=== PATIENT | male | born 1955 | race Caucasian/White ===

== ENCOUNTER 2020-12-07 13:05 | Outpatient (CLI) | payer OTHER, SELFPAY ==
--- NOTE | 2020-12-07 13:25 | CT_ITS ---
WS: [id number] CT CHEST TECHNIQUE: Contrast enhanced CT of the chest with coronal and sagittal reformatted images. CLINICAL INFORMATION: FOLLOW UP LUNG NODULE COMPARISON: 05 15,018 DLP: 842.[address] scans at [facility] use at least one of these dose optimization techniques: automat ed exposure control; mA and/or kV adjustment per patient size (includes targeted exams where dose is matched to clinical indication); or iterative reconstruction. FINDINGS: Previously described 4.3 mm nodule left upper lobe has essentially resolved. Tiny vague 2 mm residual opacity in this location. No other suspicious pulmonary parenchymal abnormalities. Mild chronic emph ysematous changes. No focal pneumonia or pleural fluid. No mediastinal or hilar lymphadenopathy. Norm al caliber thoracic aorta. Mild aortic calcification. Mild coronary calcification. No axillary lympha denopathy. Adrenal glands are normal. Small esophageal hiatal hernia. Mild thoracic curve. Mild thora cic kyphosis. Degenerative narrowing throughout the thoracic spine with endplate Schmorl's nodes. CT/CT chest w con* [id number] IMPRESSION: 1. Previously described 4.3 mm nodule left upper lobe has essentially resolved with only a tiny residual 2 mm opacity. No other suspicious pulmonary parenchy mal abnormalities. 2. Mild chronic emphysematous changes. 3. No acute pulmonary infiltrates. 4. No mediastinal or hilar lymphadenopathy. No axillary lymphadenopathy. 5. Small esophageal hiatal hernia.
[2020-12-07] MEDS: iohexol 300 mg/mL 100 mL Btl IV (13:55)
== END 2020-12-07 13:06 | disposition home or self-care (01) ==
PROVIDERS: PCP Family Medicine; Visit Provider Family Medicine
DX: R91.1 Solitary pulmonary nodule (principal); K44.9 Diaphragmatic hernia without obstruction or gangrene
CPT/HCPCS: 71260; Q9967

== ENCOUNTER 2021-06-24 09:27 | Outpatient (CLI) | payer OTHER, SELFPAY ==
--- NOTE | 2021-06-24 09:35 | USCV_ITS ---
Carlos Martin Age: 66 Gender: M : 1955 Exam Date: 06/24/2021 09:40 Ordering Phys: Almaz Bynum MD Technologist: Elen Judge [place] [facility] [place] SCREENING HISTORY: Diameter (cm) AP x Transverse x Length Velocity (cm/s) Waveform Prox Aorta: 2.24 x 2.33 x 75.70 Mid Aorta: 1.88 x 2.34 x 75.70 Distal Aorta: 3.34 x 3.51 x 44.40 Right Iliac Prox: 0.98 x 1.03 x 129.00 Left Iliac Prox: 1.12 x 1.29 x 87.60 Stent Prox Landing x x Aneurysmal Sac Max x x Lt Lat Sac Dim Rt Lat Sac Dim Stent Dist Landing x x Right Iliac Stent x x Left Iliac Stent x x Right Renal Art Left Renal Art FINDINGS: Comparison: none available. Ectatic abdominal aorta with evidence of atherosclerotic plaque noted. A fusiform abdominal aortic aneurysm is noted with a maximal diameter of 3.5 cm. There is evidence of atherosclerotic plaque no significan stenosis in the right common iliac artery. There is evidence of atherosclerotic plaque no significan stenosis in the left common iliac artery. CONCLUSIONS AAA, diameter of 3.5cm. Dr. Queenie Christiansen DO (Electronically Signed) Final Date: 24 June 2021 10:19 S
== END 2021-06-24 09:28 | disposition home or self-care (01) ==
PROVIDERS: PCP Family Medicine; Visit Provider Family Medicine
DX: Z13.6 Encounter for screening for cardiovascular disorders (principal); I71.4 Abdominal aortic aneurysm, without rupture
CPT/HCPCS: 76706

== ENCOUNTER → 2021-11-09 09:20 | Outpatient (BNVA) | payer OTHER, SELFPAY | PROVIDERS: PCP Family Medicine; Referring Provider Family Medicine; Visit Provider Specialist | DX: G56.01 Carpal tunnel syndrome, right upper limb (principal) | CPT/HCPCS: 95908 ==

== ENCOUNTER 2021-11-26 06:00 | Outpatient (RCR) | payer OTHER, SELFPAY | END 2021-12-25 23:59 | disposition home or self-care (01) | LOC: SOT 06:00 | PROVIDERS: Absent Provider Specialist; Family Provider Specialist; PCP Specialist; Referring Provider Specialist; Visit Provider Specialist | DX: M79.641 Pain in right hand (principal) | CPT/HCPCS: 97018; 97165 ==

== ENCOUNTER → 2021-12-15 14:52 | Outpatient (BNVA) | payer OTHER, SELFPAY | PROVIDERS: PCP Family Medicine; Referring Provider Family Medicine; Visit Provider Specialist | DX: M25.531 Pain in right wrist (principal); F17.210 Nicotine dependence, cigarettes, uncomplicated | CPT/HCPCS: 73110; 99203; 99204 ==

== ENCOUNTER 2021-12-26 06:00 | Outpatient (RCR) | payer OTHER, SELFPAY | END 2022-01-25 23:59 | disposition home or self-care (01) | LOC: SOT 06:00 | PROVIDERS: Absent Provider Specialist; Family Provider Specialist; PCP Specialist; Referring Provider Specialist; Visit Provider Specialist | DX: M25.531 Pain in right wrist (principal) | CPT/HCPCS: 97022; 97110; 97140 ==

== ENCOUNTER 2022-01-26 06:00 | Outpatient (RCR) | payer OTHER, SELFPAY | END 2022-02-24 23:59 | disposition home or self-care (01) | LOC: SOT 06:00 | PROVIDERS: Absent Provider Specialist; Family Provider Specialist; PCP Specialist; Referring Provider Specialist; Visit Provider Specialist | DX: M79.641 Pain in right hand (principal); M25.531 Pain in right wrist | CPT/HCPCS: 97110; 97140 ==

== ENCOUNTER 2022-03-04 12:56 | Outpatient (CLI) | payer OTHER, SELFPAY ==
--- NOTE | 2022-03-04 13:05 | US_ITS ---
WS: [id number] TESTICULAR ULTRASOUND HISTORY: ENLARGED TESTICLE COMPARISON: None available. TECHNIQUE: Real-time and color Doppler imaging or utilized to perform a testicular ultrasound. Right testicle: 5.0 cm x 3.5 cm x 2.5 cm. Normal size and echogenicity. No mass or torsion. Normal color Doppler is present throughout. Systolic and diastolic velocities are both present. Very small simple hydrocele. Right epididymis: Normal epididymis with no increased vascularity. Left testicle: 4.3 cm x 2.9 cm x 2.7 cm. Normal size and echogenicity. No mass or torsion. Normal color Doppler is present throughout. Systolic and diastolic velocities are both present. Small hydrocele. Left epididymis: There is a large cyst with low-level echoes adjacent to the epididymis. Favor this i s probably a large spermatocele. This follows the epididymis and has multiple loculations. Entire col lection measures approximately 5.1 x 3.0 x 5.9 cm. US/US scrotum [id number] IMPRESSION: 1. No testicular mass or torsion. 2. Multiloculated cystic mass with low-level echoes closely associated with th e LEFT epididymis. Favor this is probably a large LEFT spermatocele.
== END 2022-03-04 12:57 | disposition home or self-care (01) ==
LOC: RAD 12:57
PROVIDERS: PCP Family Medicine; Visit Provider Family Medicine
DX: Z01.89 Encounter for other specified special examinations (principal); N44.8 Other noninflammatory disorders of the testis
CPT/HCPCS: 76870

== ENCOUNTER 2022-11-18 15:29 | Outpatient (RCR) | payer OTHER, SELFPAY | END 2022-11-25 23:59 | disposition home or self-care (01) | LOC: SPT 15:29 | PROVIDERS: Visit Provider Family Medicine | DX: M54.2 Cervicalgia (principal) | CPT/HCPCS: 97110; 97161 ==

== ENCOUNTER 2022-11-26 06:00 | Outpatient (RCR) | payer OTHER, SELFPAY | END 2022-12-15 23:59 | disposition home or self-care (01) | LOC: SPT 06:00 | PROVIDERS: Visit Provider Family Medicine | DX: M54.2 Cervicalgia (principal) | CPT/HCPCS: 97110 ==

== ENCOUNTER → 2023-04-13 13:17 | Outpatient (BNVA) | payer OTHER, SELFPAY | PROVIDERS: Visit Provider Dermatology | DX: L57.0 Actinic keratosis (principal); L57.8 Other skin changes due to chronic exposure to nonionizing radiation; L82.1 Other seborrheic keratosis; L81.4 Other melanin hyperpigmentation; L82.0 Inflamed seborrheic keratosis; F17.210 Nicotine dependence, cigarettes, uncomplicated; Z85.828 Personal history of other malignant neoplasm of skin | CPT/HCPCS: 17000; 17110; 99213 ==

== ENCOUNTER → 2023-05-15 10:23 | Outpatient (BNVA) | payer OTHER, SELFPAY | PROVIDERS: PCP Family Medicine; Visit Provider Surgery | DX: Z12.11 Encounter for screening for malignant neoplasm of colon (principal); Z12.12 Encounter for screening for malignant neoplasm of rectum | CPT/HCPCS: 99024; 99203 ==

== ENCOUNTER 2023-05-19 09:57 | Outpatient (CLI) | payer OTHER, SELFPAY ==
--- NOTE | 2023-05-19 10:07 | CT_ITS ---
WS: [id number] CT CHEST TECHNIQUE: Noncontrast CT of the chest with coronal and sagittal reformatted images. CLINICAL INFORMATION: LEFT UPPER LOBE NODULE COMPARISON: None. DLP: 329.[address] scans at [facility] use at least one of these dose optimization techniques: automated e xposure control; mA and/or kV adjustment per patient size (includes targeted exams where dose is matc hed to clinical indication); or iterative reconstruction. FINDINGS: Small subpleural nodule LEFT upper lobe measuring 4 mm. This is similar to 2019. This is better visua lized today than in 202. Fibrosis in the lung apices. Tiny noncalcified nodule in the lingula measur ing 4 mm. Mild chronic emphysematous changes. No acute pulmonary infiltrates. No focal pneumonia or p leural fluid. Normal caliber thoracic aorta. Aortic calcification. Coronary calcification. No mediastinal or hilar lymphadenopathy. No axillary lymphadenopathy. Adrenal glands are normal. Thoracic kyphosis. Hypertrophic changes thoracic spine. Mild thoracic curv e. IMPRESSION: 1. Stable 4 mm LEFT upper lobe nodule. 2. New tiny 4 mm lingula nodule. Recommend 12-month follow-up. 3. No mediastinal or hilar lymphadenopathy. 4. Mild chronic emphysematous changes.
--- NOTE | 2023-05-19 10:07 | USCV_ITS ---
Carlos Martin Age: 68 Gender: M : 1955 Exam Date: 05/19/2023 10:22 Ordering Phys: Almaz Bynum MD Technologist: HALEIGH Exam Location: [facility] [place] Indication: AAA HISTORY: Diameter (cm) AP x Transverse x Length Velocity (cm/s) Waveform Prox Aorta: 1.87 x 2.42 x 72.50 Triphasic Mid Aorta: 1.81 x 2.17 x 63.90 Triphasic Distal Aorta: 3.02 x 4.02 x 4.43 27.90 Triphasic Right Iliac Prox: 1.06 x 1.43 x 78.80 Triphasic Left Iliac Prox: 1.05 x 1.61 x 95.90 Triphasic Stent Prox Landing x x Aneurysmal Sac Max x x Lt Lat Sac Dim Rt Lat Sac Dim Stent Dist Landing x x Right Iliac Stent x x Left Iliac Stent x x Right Renal Art Left Renal Art FINDINGS: CONCLUSIONS Infrarenal fusiform AAA measuring 3.0 x 4.0 x 4.4cm AP x Trans x CC. Moderate atheromatous disease with peripheral mural thrombus. AAA appears relatively stable since 2020. Mural thrombus has increased William Cannon MD (Electronically Signed) Final Date: 19 May 2023 16:47 S
== END 2023-05-19 09:58 | disposition home or self-care (01) ==
LOC: RAD 09:58
PROVIDERS: PCP Family Medicine; Visit Provider Family Medicine
DX: R91.8 Other nonspecific abnormal finding of lung field (principal); I71.43 Infrarenal abdominal aortic aneurysm, without rupture; I70.0 Atherosclerosis of aorta; I74.09 Other arterial embolism and thrombosis of abdominal aorta
CPT/HCPCS: 71250; 93978

== ENCOUNTER 2023-12-21 07:31 | Day surgery (SDC) | payer OTHER, SELFPAY ==
--- NOTE | 2023-12-21 07:42 | W.PM.OPSFHP ---
Same Day Surgery H&P Indication for Procedure/HPI DATE OF PROCEDURE: December 21, 2023 CHIEF COMPLAINT/INDICATIONFOR SURGICAL PROCEDURE: need for colon cancer screening PREOP DIAGNOSIS: need for colon cancer screening PLANNED PROCEDURE: Operation Date: 12/21/23 09:00 Proposed Procedures p Colonoscopy 82818,Z12.11(Not Applicable) - Zev Pal MD Medications/Allergies* Home Medications Medication Instructions Recorded Confirmed Type gabapentin 100 mg capsule 1,000 mg PO TID 11/09/21 12/19/23 History ibuprofen 600 mg tablet 600 mg PO BID 11/09/21 12/19/23 History valacyclovir 1 gram tablet 1,000 mg PO DAILY PRN Outbreak 12/15/21 12/19/23 History tramadol 50 mg tablet 50 mg PO Q6H PRN Pain 12/19/23 12/19/23 History Allergies/Adverse Reactions Allergy/AdvReac Type Severity Reaction Status Date / Time No Known Allergies Allergy Verified 05/15/23 10:26 Pertinent History/Comorbid Conditions* Medical History (Updated 05/15/23 @ 10:47 by Zev Pal MD) History of nonmelanoma skin cancer Surgical History (Updated 05/15/23 @ 10:47 by Zev Pal MD) Hx of colonoscopy with polypectomy Dr. Olson Family History (Updated 05/15/23 @ 10:33 by JUVE Chairez) Heart attack Father Cancer Sister skin cancer Brother colon cancer Stroke Mother Social History Smoking and tobacco/nicotine status: current every day tobacco/nicotine user (pack a day) Alcohol intake: never Substance/Drug Use: never Pertinent Exam Findings alert, oriented x 3, clear to auscultation bilaterally and regular rate & rhythm Recommendations Surgery/Procedure today Coding Level of Care Code Acute Code for Chg Fwd
[2023-12-21 07:46] VITALS: BP 115/75; PULSE 69; RESP 16; TEMP 36.4; O2SAT 97
[2023-12-21 07:49] VITALS: BMI 21.7
[2023-12-21] MEDS: sodium chloride 0.9% 1,000 ML 30 ML IV (07:58)
--- NOTE | 2023-12-21 08:14 | ANES.PREANE2 ---
Pre-Anesthetic Assessment Height/Weight: Height 1.85 m Weight 74.843 kg Temp Pulse Resp BP Pulse Ox O2 Del Method 97.6 F 69 16 115/75 97 Room Air 12/21/23 07:46 12/21/23 07:46 12/21/23 07:46 12/21/23 07:46 12/21/23 07:46 12/21/23 07:46 Preop Diagnosis: need for colon cancer screening Operation Date: 12/21/23 09:00 Proposed Procedures p Colonoscopy 26776,Z12.11(Not Applicable) - Zev Pal MD Familial anesthetic complications: none Was Beta Dasha taken within 24 hours: N/A Was Clonidine taken within 24 hours: N/A Last intake: Intake Last Liquid Date 12/20/23 Last Liquid Time 18:00 Last Solid Date 12/19/23 Last Solid Time 16:00 Social Tobacco and No alcohol 1 pack(s) per day MJ use Exam alert and oriented x 3 Airway Submandibular: within normal limits Cervical ROM: within normal limits Mallampati: Class II Dentition: false Pulmonary Chronic Obstructive Pulmonary Disease CV/HEM None reported None reported Hepatic None reported GI None reported Metabolic None reported Musc/skel Osteoarthritis/DJD Neuropsych None reported Anesthetic Plan ASA status: 2 Anesthesia: Anesthesia Evaluation, General and MAC Medications/Allergies Home Medications Medication Instructions Recorded Confirmed Last Taken Type gabapentin 100 mg capsule 1,000 mg PO TID 11/09/21 12/21/23 12/21/23 History ibuprofen 600 mg tablet 600 mg PO BID 11/09/21 12/21/23 12/19/23 History valacyclovir 1 gram tablet 1,000 mg PO DAILY PRN Outbreak 12/15/21 12/21/23 Unknown History tramadol 50 mg tablet 50 mg PO Q6H PRN Pain 12/19/23 12/21/23 12/20/23 History Allergies Allergy/AdvReac Type Severity Reaction Status Date / Time No Known Allergies Allergy Verified 05/15/23 10:26 Current Medications Generic Name Dose Route Start Last Admin Trade Name Freq PRN Reason Stop Dose Admin Sodium Chloride 1,000 mls @ 30 mls/hr 12/21/23 07:45 12/21/23 07:58 Sodium Chloride 0.9% IV 12/22/23 07:44 30 mls/hr .Q24H ALONDRA Administration PFSH Anesthesia Medical History (Updated 05/15/23 @ 10:47 by Zev Pal MD) History of nonmelanoma skin cancer Surgical History (Updated 05/15/23 @ 10:47 by Zev Pal MD) Hx of colonoscopy with polypectomy Dr. Olson Family History (Updated 05/15/23 @ 10:33 by JUVE Chairez) Mother Stroke Father Heart attack Sister Cancer skin cancer Brother Cancer colon cancer Social History Smoking and tobacco/nicotine status: current every day tobacco/nicotine user (pack a day) Alcohol intake: never Substance/Drug Use: never Data Anesthesia Cardiac Studies: No Data to Display
[2023-12-21 09:00] VITALS: BP 82/62; PULSE 58; RESP 18; TEMP 36.1; O2SAT 99
[2023-12-21 09:08] VITALS: BP 105/60; PULSE 68; RESP 18; O2SAT 95
[2023-12-21 09:18] VITALS: BP 96/68; PULSE 67; RESP 18; O2SAT 97
[2023-12-21 09:28] VITALS: BP 107/78; PULSE 59; RESP 18; O2SAT 98
[2023-12-21 09:38] VITALS: BP 98/76; PULSE 60; RESP 18; O2SAT 99
--- NOTE | 2023-12-21 09:41 | ANE.PACU2 ---
Inpatient post-anesthesia follow up: Airway intact: Yes Vital signs: Temperature 97.0 F Pulse Rate 60 Respiratory Rate 18 Blood Pressure 98/76 Pulse Oximetry 99 Oxygen Delivery Me thod Room Air Oxygen Flow Rate Fraction of Inspir ed Oxygen Hydration adequate: Yes Nausea and vomiting: No Pain level: 1 Mental status: Baseline
== END 2023-12-21 09:58 | disposition home or self-care (01) ==
PROVIDERS: PCP Family Medicine; Visit Provider Surgery
PROC: 0DJD8ZZ Inspection of Lower Intestinal Tract, Via Natural or Artificial Opening Endoscopic (ICD-10-PCS; CPT 45378; principal; 2023-12-21 09:00)
DX: Z12.11 Encounter for screening for malignant neoplasm of colon (principal); D12.8 Benign neoplasm of rectum; K57.30 Diverticulosis of large intestine without perforation or abscess without bleeding; J44.9 Chronic obstructive pulmonary disease, unspecified; Z85.828 Personal history of other malignant neoplasm of skin; F17.200 Nicotine dependence, unspecified, uncomplicated
CPT/HCPCS: 45380; 88305; J2704; J7030

== ENCOUNTER → 2024-01-17 09:39 | Outpatient (BNVA) | payer OTHER, SELFPAY | PROVIDERS: PCP Family Medicine; Visit Provider Surgery | DX: Z12.11 Encounter for screening for malignant neoplasm of colon (principal); Z12.12 Encounter for screening for malignant neoplasm of rectum | CPT/HCPCS: 99213 ==

== ENCOUNTER → 2024-04-15 10:45 | Outpatient (BNVA) | payer OTHER, SELFPAY | PROVIDERS: PCP Family Medicine; Visit Provider Nurse Practitioner Family | DX: L57.0 Actinic keratosis (principal); L82.0 Inflamed seborrheic keratosis; L23.9 Allergic contact dermatitis, unspecified cause; L57.8 Other skin changes due to chronic exposure to nonionizing radiation; L82.1 Other seborrheic keratosis; L81.4 Other melanin hyperpigmentation; Z85.828 Personal history of other malignant neoplasm of skin | CPT/HCPCS: 17000; 17110; 99213 ==

== ENCOUNTER 2024-05-17 10:31 | Outpatient (CLI) | payer OTHER, SELFPAY ==
--- NOTE | 2024-05-17 10:36 | CT_ITS ---
WS: [id number] CT chest w con* [id number] HISTORY: 12 MONTH FOLLOW UP/FAMILIA NODULE TECHNIQUE: Axial imaging performed through the thorax. Coronal and sagittal reformats are submitted. All CT scans at [facility] use at least one of these dose optimization techniques: automated exposure control; mA and/or kV adjustment per patient size (includes targeted exams where dose is mat ched to clinical indication); or iterative reconstruction. CONTRAST: Omnipaque 350; 100 mL IV. DLP: 368.61 mGy.cm COMPARISON: 12/07/2020, 05/19/2023 Lungs and central airway: Mild pulmonary hyperinflation from emphysema. There are 3 very tiny LEFT up per lobe pulmonary nodules which have not increased in size. New mild tree-in-bud airspace disease RI GHT upper lobe. No pulmonary mass or enlarging nodule. Pleura: Normal. No pleural effusion. Heart and pericardium: Normal size heart with no pericardial effusion. Mediastinum and scott: No mediastinum or hilar adenopathy. Vessels: Normal size aortic and pulmonary artery. No coronary artery calcifications. Chest wall and lower neck: No soft tissue masses. Upper abdomen: Infrarenal abdominal aortic aneurysm is identified with a maximum diameter of 4.2 cm. Asymmetric circumferential luminal thrombus. No adrenal mass. Osseous structures: Advanced thoracic and upper lumbar spine spondylosis with degenerative reactive e ndplate changes. CT/CT chest w con* [id number] IMPRESSION: 1. Stable very small, less than 4 mm, pulmonary nodules in the LEFT upper lobe . No additional work-up necessary. 2. New very minimal tree-in-bud airspace disease in the RIGHT upper lobe. Most likely due to endobronchial pneumonia. 3. Incompletely visualized abdominal aortic aneurysm with a maximum diameter 4 .2 cm. Similar diameter as the ultrasound from 05/19/2023.
[2024-05-17 11:56] LABS: Blood Urea Nitrogen 13 mg/dL (8-23); Glomerular Filtration Rate 83.7 mL/min (90-130)
[2024-05-17] MEDS: iohexol 350 mg/mL 500 mL Btl (per mL) IV (12:02)
== END 2024-05-17 10:32 | disposition home or self-care (01) ==
PROVIDERS: Radiology Neuroradiology; PCP Family Medicine; Visit Provider Family Medicine
DX: R91.8 Other nonspecific abnormal finding of lung field (principal); J47.9 Bronchiectasis, uncomplicated; I71.43 Infrarenal abdominal aortic aneurysm, without rupture
CPT/HCPCS: 71260; 82565; 84520

== ENCOUNTER 2024-09-13 14:34 | Outpatient (CLI) | payer OTHER, SELFPAY ==
--- NOTE | 2024-09-13 14:40 | US_ITS ---
WS: [id number] RENAL ULTRASOUND HISTORY: hematuria COMPARISON: None available. TECHNIQUE: 2-D and color Doppler imaging of the kidney submitted. Right kidney: 10.1 cm x 5.7 cm x 5.7 cm. Cortex: 1.1 cm Normal echogenicity with no hydronephrosis or mass. Left kidney: 11.3 cm x 4.9 cm x 5.5 cm. Cortex: 1.1 cm Normal echogenicity with no hydronephrosis or mass. Aorta: Fusiform dilatation of the abdominal aorta. Maximum transverse diameter is 3.5 cm. No periaort ic fluid collection. Urinary Bladder: Normally distended bladder. Prostate gland is enlarged encroaching into the bladder. There is thickened bladder wall with prominent trabecula. Suspect chronic outlet obstruction. US/US renal BI* [id number] IMPRESSION: 1. No renal mass or obstruction. 2. Diffuse thickened gallbladder wall with an enlarged prostate gland. Suspect heavily trabeculated bladder from outlet obstruction. 3. Abdominal aortic aneurysm, maximum diameter of 3.5 cm.
== END 2024-09-13 14:35 | disposition home or self-care (01) ==
LOC: RAD 14:36
PROVIDERS: PCP Family Medicine; Visit Provider Family Medicine
DX: R31.9 Hematuria, unspecified (principal); R93.3 Abnormal findings on diagnostic imaging of other parts of digestive tract; N40.0 Benign prostatic hyperplasia without lower urinary tract symptoms; I71.40 Abdominal aortic aneurysm, without rupture, unspecified
CPT/HCPCS: 76770

== ENCOUNTER → 2025-05-22 07:37 | Outpatient (BNVA) | payer OTHER, SELFPAY | PROVIDERS: PCP Family Medicine; Visit Provider Nurse Practitioner Family | DX: L57.8 Other skin changes due to chronic exposure to nonionizing radiation (principal); L81.4 Other melanin hyperpigmentation; Z08 Encounter for follow-up examination after completed treatment for malignant neoplasm; Z85.828 Personal history of other malignant neoplasm of skin; L82.0 Inflamed seborrheic keratosis; L29.89 Other pruritus | CPT/HCPCS: 17110; 99213 ==

== ENCOUNTER 2025-06-12 11:19 | Outpatient (CLI) | payer OTHER, SELFPAY ==
--- NOTE | 2025-06-12 11:41 | CT_ITS ---
WS: [id number] LDCT LUNG CANCER SCREENING TECHNIQUE: Noncontrast CT of the chest with coronal and sagittal reformatted images. CLINICAL INFORMATION: SCREENING COMPARISON: 2023 DLP: 60.51 mGy.cm DIvol: Mean CTDIvol: 1.00 (mGy) All CT scans at [facility] use at least one of these dose optimization techniques: automated exposure control; mA and/or kV adjustment per patient size (includes targeted exams where dose is matched to clinical indication); or iterative reconstruction. FINDINGS: Tree-in-bud opacities in the RIGHT upper lobe progressed compared to previous. Superimposed miliary nodules. Mucous plugging in the RIGHT upper lobe. Findings have progressed compared to previous. Recommend pulmonary consultation. Enlarged RIGHT hilar lymph nodes. Suprahilar masslike lymphadenopathy measuring up to 2.4 cm. This is new from previous and neoplasm not excluded. Recommend further evaluation with PET/CT and bronchoscopy. Bronchovascular thickening about the RIGHT hilum 4 mm noncalcified nodule LEFT upper lobe. Additional 3 mm nodule LEFT upper lobe. 3 mm nodule in the lingula. 5 mm nodule superior segment LEFT lower lobe. This is new from previous. Additional 3 mm nodule LEFT lower lobe. Aortic calcification. Coronary calcification. Adrenal glands are normal. Small esophageal hiatal hernia. Moderate thoracic kyphosis. Endplate Schmorl's nodes. Mild thoracic curve. Moderate spondylitic changes thoracic spine. CT/CT lung screening [id number] IMPRESSION: Extensive RIGHT upper lobe tree-in-bud infiltrates with mucous plugging and mil iary nodules. This is progressed compared to 05/17/2024. Recommend pulmonary con sultation. RIGHT hilar and masslike suprahilar lymphadenopathy measuring up to 2.4 cm. Thi s is difficult to further evaluated without contrast. This appears new compared to previous and neoplasm not excluded. Recommend further evaluation with PET/C T. Several subcentimeter pulmonary nodules in the LEFT upper and lower lobes large st measuring 5 mm superior segment LEFT lower lobe is new from previous. LUNG-RADS: 4B-Suspicious FOLLOW UP: PET/CT recommended Recommend further initial evaluation with PET/CT and pulmonology consultation. Also bronchoscopy recommended. Neoplasm not excluded.
== END 2025-06-12 11:20 | disposition home or self-care (01) ==
LOC: RAD 11:21
PROVIDERS: PCP Family Medicine; Visit Provider Nurse Practitioner Family
DX: Z87.891 Personal history of nicotine dependence (principal); R91.8 Other nonspecific abnormal finding of lung field
CPT/HCPCS: 71271

== ENCOUNTER 2025-06-20 12:55 | Outpatient (CLI) | payer OTHER, SELFPAY ==
--- NOTE | 2025-06-20 13:03 | PETR_ITS ---
PROCEDURE INFORMATION: Exam: PET/CT Skull Base to Mid-thigh Exam date and time: 06/20/2025 2:11 PM Age: 70 years old Clinical indication: Abnormal findings; Extensive right upper lobe tree-in-bud infiltrates with mucous plugging and miliary nodules. This is progressed compared to 05/17/2024. Recommend pulmonary consultation. Right hilar and masslike suprahilar lymphadenopathy measuring up to 2.4 cm. This is difficult to further evaluated without contrast. This appears new compared to previous and neoplasm not excluded. Recommend further evaluation with pet/ct; HX of bladder cancer; Additional info: Abnormal screening LABS AND CLINICAL REPORTS: Glucose: 86 mg/dl Treatment strategy for malignancy (PET staging): Initial Staging (PI) TECHNIQUE: Imaging protocol: Following at least four-hour fasting and following the injection of radiopharmaceutical, low dose CT images were obtained. Then, PET images were obtained. Attenuation corrected images were constructed using the CT scan. Fused images of PET and CT were reviewed. The standardized uptake values (SUV) reported below are maximum values within a region of interest, expressed in gm/ml. Exam includes orbital meatal line to mid-thigh. SUV normalization method: BodyWeight Radiopharmaceutical: 11.54 mCi F-18 FDG (Fluorodeoxyglucose), IV. Time of imaging post radiopharmaceutical administration: 53 minutes Injection site: right ac COMPARISON: 1. CT lung screening [id number] 06/12/2025 12:03 PM 2. Report only from scrotal ultrasound dated 03/04/2022 FINDINGS: Brain: Visualized brain has normal physiologic uptake. Pharynx: No abnormal uptake. Larynx: No abnormal uptake. Lungs, pleura and trachea: FDG avid masslike right upper lobe bronchial occlusion (versus perihilar mass or lymph node) measuring approximately 3 cm on axial image 84 with associated FDG avid branching corresponding to airway filling defects with more distal filling defects being non FDG avid. SUV max within this area of 91.1. Non FDG avid right upper lobe tree-in-bud nodularity. Heart: Normal physiologic uptake. Coronary arteries: Moderate coronary artery calcification. Mediastinal space: No abnormal uptake. Diaphragm: Small hiatal hernia. Esophagus: Low-level upper and distal esophageal uptake without underlying CT abnormality is likely inflammatory. Liver: No abnormal uptake. Gallbladder and biliary ducts: No abnormal uptake. Pancreas: No abnormal uptake. Spleen: No abnormal uptake. Adrenal glands: No abnormal uptake. Kidneys and ureters: Normal physiologic uptake. Stomach and bowel: No abnormal uptake. Colonic diverticulosis without findings of diverticulitis. Vasculature: No abnormal uptake. Moderate systemic atherosclerotic calcification with fusiform infrarenal abdominal aortic aneurysm measuring 4.3 cm. Lymph nodes: No abnormal uptake. No lymphadenopathy in the head, neck, chest, abdomen, pelvis, and extremities. Skeleton: Degenerative changes along the axial skeletal system and shoulders with note of degenerative uptake at the left C5-C6 facet joint. Soft tissues: Stable size 6 cm photopenic left scrotal cystic lesion likely representing spermatocele. METRICS: Mediastinal blood pool: SUV mean 1.9 Liver uptake: SUV mean 2.5 PET/PET skull to thigh INIT [id number] IMPRESSION: 1. FDG avid masslike right upper lobe bronchial occlusion (versus perihilar mass or lymph node) measuring approximately 3 cm with associated FDG avid branching corresponding to airway filling defects. Concern for malignancy. Recommend bronchoscopy. 2. More distal right upper lobe airway filling defects are non FDG-avid. Diffuse right upper lobe tree-in-bud nodularity redemonstrated. 3. 4.3 cm infrarenal abdominal aortic aneurysm. 4. Additional chronic and incidental findings as above.
== END 2025-06-20 12:56 | disposition home or self-care (01) ==
PROVIDERS: PCP Family Medicine; Visit Provider Nurse Practitioner Family
DX: R91.8 Other nonspecific abnormal finding of lung field (principal); I25.10 Atherosclerotic heart disease of native coronary artery without angina pectoris; K44.9 Diaphragmatic hernia without obstruction or gangrene; K22.9 Disease of esophagus, unspecified; M46.92 Unspecified inflammatory spondylopathy, cervical region; M50.322 Other cervical disc degeneration at C5-C6 level; M25.812 Other specified joint disorders, left shoulder; M25.811 Other specified joint disorders, right shoulder; R93.812 Abnormal radiologic findings on diagnostic imaging of left testicle; I71.43 Infrarenal abdominal aortic aneurysm, without rupture; J98.4 Other disorders of lung
CPT/HCPCS: 78815; A9552

== ENCOUNTER 2025-07-22 12:00 | Oncology outpatient (recurring) (ONCR) | payer OTHER, SELFPAY ==
[2025-07-22 11:38] VITALS: PULSE 57; RESP 18; O2SAT 97
== END 2025-07-27 23:59 | disposition home or self-care (01) ==
LOC: RT 07-23 00:01 → ONCMED 07-23 10:30
PROVIDERS: PCP Nurse Practitioner Family; Visit Provider Internal Medicine
DX: C34.90 Malignant neoplasm of unspecified part of unspecified bronchus or lung (principal); J45.998 Other asthma
CPT/HCPCS: 94060; 94726; 94729; 99205; J7613

== ENCOUNTER 2025-07-25 09:32 | Outpatient (CLI) | payer OTHER, SELFPAY ==
--- NOTE | 2025-07-25 10:15 | MR_ITS ---
WS: [id number] MRI HEAD WITH CONTRAST TECHNIQUE: Sagittal T1, T2 axial, T2 axial FLAIR, axial susceptibility weighted imaging, axial diffusion weighted images, and coronal T2 images were obtained. Pre and post-T1 axial and post T1 coronal images. ADC and FSPGR images. CLINICAL INFORMATION: Non-small cell lung cancer COMPARISON: None. FINDINGS: No evidence of restricted diffusion to suggest acute ischemia. Ventricular system and basal cisterns are patent. No suspicious intracranial signal abnormalities. Minimal small vessel changes. Moderate parenchymal volume loss. Normal posterior fossa. Normal vascular flow voids at the skull base. No extra- axial fluid collections. Mild mucosal thickening in the paranasal sinuses. Poor contrast bolus with poor post gadolinium enhancement. However no evidence of metastatic disease on the precontrast imaging. Patient could return for postcontrast imaging attempt again if clinically indicated. No hemosiderin on the susceptibly weighted images. Normal optic chiasm and pituitary infundibulum. MR/MR head wo/w con [id number] IMPRESSION: 1. No evidence of restricted diffusion to suggest acute ischemia. 2. Minimal small vessel changes. Moderate parenchymal volume loss. 3. Poor contrast enhancement on the post gadolinium images. However no evidenc e of metastatic disease on the precontrast imaging. Patient could return for ad ditional attempt postcontrast imaging if clinically indicated 4. No hemosiderin on susceptibility-weighted images. 5. No other suspicious findings.
[2025-07-25] MEDS: gadobenate dimeglumine 20 mL vial 15 ML IV (10:49)
== END 2025-07-25 09:33 | disposition home or self-care (01) ==
LOC: RAD 09:33
PROVIDERS: PCP Nurse Practitioner Family; Visit Provider Internal Medicine Medical Oncology
DX: C34.11 Malignant neoplasm of upper lobe, right bronchus or lung (principal); G31.9 Degenerative disease of nervous system, unspecified; J34.81 Nasal mucositis (ulcerative)
CPT/HCPCS: 70553; A9577